=== PATIENT | female | born 1955 | race Caucasian/White ===

== ENCOUNTER 2017-08-25 20:44 | Emergency (ER) | payer OTHER ==
[2017-08-25] MEDS ORDERED: DIPH,PERTUSS(ACELL),TET VAC/PF 0.5 ML DISP.SYRIN IM ONE (21:08)
--- NOTE | 2017-08-25 21:11 | ED Physician Documentation ---
General Adult - HISTORIAN Historian: patient, spouse - HPI Stated Complaint: head lac Chief Complaint: General Adult Additional Information: Working in kitchen and turned to open refrigerator. Hit head on door frame. No LOC. Last tetanus 8 years ago. - ROS CONST: no problems - PAST HX Past History: hypertension, other (seasonal allergies) - SOCIAL HX Smoking History: non-smoker - FAMILY HX Family History: No - REVIEWED ASSESSMENTS Nursing Assessment Reviewed: Yes Vitals Reviewed: Yes Procedures Wound Location: head Wound Length: 3 cm Wound's Depth, Shape: linear, irregular (sub q) Wound Explored: cleaned with chlorhexadine and saline Wound Repaired With: edd (2) ED Results Lab/Radiology - Orders Orders: ED Orders Category Date Time Status Cleanse with NS and Chlorhexid 1T Care 08/25/17 21:08 Ordered Diph,Pertuss(Acell),Tet Vac/Pf [Adacel] Med 08/25/17 21:08 Once 0.5 ml IM .ONCE ONE General Adult Physical Exam - PHYSICAL EXAM GENERAL APPEARANCE: mild distress EENT: eye inspection normal, ENT inspection normal NECK: normal inspection, supple RESPIRATORY: no resp distress BACK: normal inspection (fluid movements w/o pain) SKIN: warm/dry, normal color, other (2 cm lac mid upper occiput) EXTREMITIES: no evidence of injury NEURO: CN's nml as tested, motor nml, sensation nml, cognition normal Discharge Clincal Impression: Occipital scalp laceration Qualifiers: Encounter type: initial encounter Qualified Code(s): S01.01XA - Laceration without foreign body of scalp, initial encounter Referrals: Latricia Magana MD [Primary Care Provider] - 2 Days Condition: Good Disposition: HOME, SELF-CARE Decision to Admit: NO Decision Time: 21:10
[2017-08-26 00:43] VITALS: BP 151/87
== END 2017-08-25 21:29 | disposition home or self-care (01) ==
LOC: ED 20:44
DX: S01.01XA Laceration without foreign body of scalp, initial encounter (principal); Y93.G3 Activity, cooking and baking
CPT/HCPCS: 12002; 90715; 96372